=== PATIENT | male | born 1965 | race American Indian/Alaskan Native ===

== ENCOUNTER 2018-09-17 07:06 | Day surgery (SDC) | payer BC ==
[~2018-09-17] VITALS: Ht 170.2 cm; Wt 90.7 kg
[~2018-09-17 07:06] MED LIST: BAYER CHEWABLE81 MG PO; FISH OIL 1,0001 EAC3 PO; GLUCOSAMINE &1 EAC1 PO; MULTI VITAMIN1 EACH PO; NORTRIPTYLINE H25 MG PO; OMEPRAZOLE20 MG PO
--- NOTE | 2018-09-17 09:45 | NUR ---
09/17/18 0945 Funmi Hickman 0932- PT TO RECOVERY ROOM. REPORT FROM YEN RN. PT AWAKE AND RESPONSIVE TO QUESTIONS. PT ARRIVES ON 6L/MASK. 0934- PT DENIES ANY PAIN OR NAUSEA 0937- PT DRIFTS TO SLEEP IN BETWEEN SPEAKING WITH RN, WAKES EASILY. 0941- O2 TURNED DOWN TO 3L. TOLERTATING WELL
--- NOTE | 2018-09-17 10:03 | OR ---
[facility] [address] [facility], [place] [address] Signed DATE OF OPERATION: 09/17/2018 SURGEON: Lizbet Frances MD PREOPERATIVE DIAGNOSIS: Screening. POSTOPERATIVE DIAGNOSES: 1. A 4 mm polyp at 8 cm. 2. An 8 mm polyp at 90 cm. 3. Minimal internal hemorrhoids. PROCEDURE: Colonoscopy with hot biopsy and snare polypectomy. INDICATIONS: Jacob is a 53-year-old gentleman, who came for his screening colonoscopy. He has no lower GI complaints. There is no family history of colon cancer or polyps. In the office, I gave him a pamphlet on colonoscopy. We discussed the nature of the test along with the risks including, but not limited to gas, bloating, crampy abdominal pain, bleeding, perforation, requiring surgery, and missed diagnosis. We also discussed the need for IV conscious sedation. He had expressed understanding and wished to proceed. PROCEDURE NOTE: Jacob was taken into our endoscopy suite and placed in the left lateral decubitus position. He was given 6 mg of Versed and 150 mcg of fentanyl. A digital rectal exam was performed. This was unremarkable. After this, the adult colonoscope was introduced and advanced all way out into the cecum under direct visualization of camera without difficulty. His prep was good. He had some liquid stool on the surface of the mucosa, however, most of the mucosa could be visualized. The scope was then slowly withdrawn. We used the snare and hot biopsy forceps at 90 cm to remove the polyp and then we used a hot biopsy forceps back at 8 cm. We saw no evidence of any diverticula. Once in the rectum, the scope was retroflexed and he does have some minimal internal hemorrhoid tissue. After this, the gas was suctioned out and colonoscope removed. Tremayne tolerated the procedure quite well. RECOMMENDATIONS: I will see Tremayne back in my office in 7 to 14 days to review his results. Electronically Signed By: LIZBET FRANCES MD 09/17/18 1003 PATIENT NAME: TREMAYNE LUBIN OPERATIVE REPORT DATE OF : 69 REPORT #: [id number] PHYSICIAN: LIZBET FRANCES MD PCP: ZOË GARDINER REPORT IS CONFIDENTIAL AND NOT TO BE RELEASED WITHOUT AUTHORIZATION [address] [address] Signed Lizbet Frances MD ALB/PATRICIA /[id number] cc: GARRETT Wyatt MD Copies: LIZBET FRANCES MD ~ Electronically Signed By: LIZBET FRANCES MD 09/17/18 1003 PATIENT NAME: TREMAYNE LUBIN OPERATIVE REPORT DATE OF : 69 REPORT #: [id number] PHYSICIAN: LIZBET FRANCES MD PCP: ZOË GARDINER PAC REPORT IS CONFIDENTIAL AND NOT TO BE RELEASED WITHOUT AUTHORIZATION
--- NOTE | 2018-09-17 14:51 | NUR ---
PT IN FOR ROUTINE SCOPE HE CALLED IT. HE SEEMED AT EASE, TOOK PREP IN STRIDE AND THANKED ME FOR COMING IN. WILL FOLLOW NEEDED
== END 2018-09-17 10:18 | disposition home or self-care (01) ==
LOC: OPS 07:06 → DS 07:06 → OPS 09:15 → DS 09:15 → OPS 10:18
PROVIDERS: Colon & Rectal Surgery
PROC: 0DBE8ZZ Excision of Large Intestine, Via Natural or Artificial Opening Endoscopic (ICD-10-PCS; principal; 2018-09-17 09:15)
DX: Z12.11 Encounter for screening for malignant neoplasm of colon (principal); D12.6 Benign neoplasm of colon, unspecified; K63.5 Polyp of colon; K64.8 Other hemorrhoids; K21.9 Gastro-esophageal reflux disease without esophagitis; E78.5 Hyperlipidemia, unspecified; Z79.82 Long term (current) use of aspirin; Z79.899 Other long term (current) drug therapy
CPT/HCPCS: 99153; G0500; J2250; J3010; J7120